=== PATIENT | male | born 1980 | race Hispanic/Latino ===

== ENCOUNTER 2023-01-17 14:12 | Emergency (ER) | payer OTHER, SELFPAY ==
[2023-01-17] MEDS ORDERED: Ibuprofen 800 MG TAB ONE (15:34)
== END 2023-01-17 15:38 | disposition home or self-care (01) ==
LOC: MADERS 14:12
DX: S22.31XA Fracture of one rib, right side, initial encounter for closed fracture (principal); S82.002A Unspecified fracture of left patella, initial encounter for closed fracture; S62.614A Displaced fracture of proximal phalanx of right ring finger, initial encounter for closed fracture; W18.30XA Fall on same level, unspecified, initial encounter; Y92.830 Public park as the place of occurrence of the external cause